=== PATIENT | female | born 1965 | race Caucasian/White ===

== ENCOUNTER → 2021-05-01 08:28 | Outpatient (BNVA) | payer MEDICARE, SELFPAY | PROVIDERS: Family Provider Family Medicine; PCP Family Medicine; Referring Provider Family Medicine; Visit Provider Specialist | DX: M25.561 Pain in right knee (principal) | CPT/HCPCS: 73560; 73565 ==

== ENCOUNTER 2021-05-06 06:00 | Outpatient (RCR) | payer MEDICARE, MEDICAID, SELFPAY | END 2021-05-14 23:59 | disposition home or self-care (01) | LOC: TPT 06:00 | PROVIDERS: PCP Family Medicine; Referring Provider Specialist; Visit Provider Specialist | DX: S80.01XA Contusion of right knee, initial encounter (principal); X58.XXXA Exposure to other specified factors, initial encounter | CPT/HCPCS: 97110; 97161 ==

== ENCOUNTER 2021-05-13 14:48 | Outpatient (CLI) | payer MEDICARE, MEDICAID, SELFPAY ==
--- NOTE | 2021-05-13 15:02 | MR_ITS ---
WS: [id number] MRI RIGHT KNEE NONCONTRAST TECHNIQUE: Axial PD, coronal PD fat sat, coronal PD, sagittal PD, and sagittal PD fat-sat images obta ined. Cardiac coil used due to body habitus. CLINICAL INFORMATION: S82.009A - Unspecified fracture of unspecified patella, i... COMPARISON: None. FINDINGS: Distal quadriceps and patella tendons are intact. Hypertrophic patella. T1 hypointense and T2 hyperin tense lesion involving the distal femur consistent with incidental enchondroma measuring 1.5 cm. Smal l amount of subchondral edema with advanced chondromalacia involving the medial patella facet. No vis ualized acute fractures. Full-thickness cartilage defects involving the medial patella facet with sub chondral edema. Normal anterior and posterior cruciate ligaments. Small suprapatellar effusion. Small amount of prepa tellar and infrapatellar soft tissue edema. Normal medial and lateral patellar retinaculum. Moderate degenerative narrowing involving the medial and lateral joint compartments. Normal medial and lateral collateral ligaments. Chronic thinning of the medial and lateral meniscus. No acute appearing menisc al tears. Small amount of chronic intrasubstance signal abnormality involving the meniscus. MR/MR knee RT wo con* [id number] IMPRESSION: 1. Normal anterior and posterior cruciate ligaments. 2. Hypertrophic patella. No visualized patellar fractures. 3. 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 4. Distal quadriceps and patella tendons are intact. Small amount of prepatell ar and infrapatellar soft tissue edema. 5. Incidental enchondroma distal femur. 6. No acute appearing meniscal tears. Outbridge grading: grade IV: full-thickness cartilage loss with underlying bone reactive changes
== END 2021-05-13 14:49 | disposition home or self-care (01) ==
LOC: RADSHAW 14:59
PROVIDERS: PCP Family Medicine; Visit Provider Family Medicine
DX: S82.001A Unspecified fracture of right patella, initial encounter for closed fracture (principal); W19.XXXA Unspecified fall, initial encounter; D16.21 Benign neoplasm of long bones of right lower limb; R60.0 Localized edema; M22.41 Chondromalacia patellae, right knee
CPT/HCPCS: 73721

== ENCOUNTER 2021-05-15 06:00 | Outpatient (RCR) | payer MEDICARE, MEDICAID, SELFPAY | END 2021-06-14 23:59 | disposition home or self-care (01) | LOC: TPT 06:00 | PROVIDERS: PCP Family Medicine; Referring Provider Specialist; Visit Provider Specialist | DX: S80.01XD Contusion of right knee, subsequent encounter (principal); X58.XXXD Exposure to other specified factors, subsequent encounter | CPT/HCPCS: 97110 ==

== ENCOUNTER 2021-06-15 06:00 | Outpatient (RCR) | payer MEDICARE, MEDICAID, SELFPAY | END 2021-07-15 23:59 | disposition home or self-care (01) | LOC: TPT 06:00 | PROVIDERS: PCP Family Medicine; Referring Provider Specialist; Visit Provider Specialist | DX: S80.01XD Contusion of right knee, subsequent encounter (principal); X58.XXXD Exposure to other specified factors, subsequent encounter | CPT/HCPCS: 97110; 97164 ==

== ENCOUNTER 2022-08-13 06:00 | Outpatient (RCR) | payer MEDICARE, SELFPAY | END 2022-08-14 23:59 | disposition home or self-care (01) | LOC: TPT 06:00 | PROVIDERS: PCP Family Medicine; Visit Provider Orthopaedic Surgery | DX: Z96.651 Presence of right artificial knee joint (principal) | CPT/HCPCS: 97163 ==

== ENCOUNTER 2022-08-15 06:00 | Outpatient (RCR) | payer MEDICARE, SELFPAY | END 2022-09-14 23:59 | disposition home or self-care (01) | LOC: TPT 06:00 | PROVIDERS: PCP Family Medicine; Visit Provider Orthopaedic Surgery | DX: M17.11 Unilateral primary osteoarthritis, right knee (principal) | CPT/HCPCS: 97110 ==

== ENCOUNTER 2022-09-15 06:00 | Outpatient (RCR) | payer MEDICARE, SELFPAY | END 2022-10-14 23:59 | disposition home or self-care (01) | LOC: TPT 06:00 | PROVIDERS: PCP Family Medicine; Visit Provider Orthopaedic Surgery | DX: M17.11 Unilateral primary osteoarthritis, right knee (principal) | CPT/HCPCS: 97110 ==

== ENCOUNTER 2022-10-15 06:00 | Outpatient (RCR) | payer MEDICARE, SELFPAY | END 2022-11-14 23:59 | disposition home or self-care (01) | LOC: TPT 06:00 | PROVIDERS: PCP Family Medicine; Visit Provider Orthopaedic Surgery | DX: Z96.651 Presence of right artificial knee joint (principal) | CPT/HCPCS: 97110; 97140 ==

== ENCOUNTER 2022-11-15 06:00 | Outpatient (RCR) | payer MEDICARE, SELFPAY | END 2022-12-08 23:59 | disposition home or self-care (01) | LOC: TPT 06:00 | PROVIDERS: PCP Family Medicine; Visit Provider Orthopaedic Surgery | DX: Z96.651 Presence of right artificial knee joint (principal) | CPT/HCPCS: 97110; 97140 ==

== ENCOUNTER → 2023-12-09 12:08 | Outpatient (BNVA) | payer MEDICARE, SELFPAY | PROVIDERS: PCP Family Medicine; Visit Provider Nurse Practitioner Family | DX: I10 Essential (primary) hypertension (principal); F32.A Depression, unspecified; Z86.718 Personal history of other venous thrombosis and embolism; Z68.43 Body mass index [BMI] 50.0-59.9, adult; M17.11 Unilateral primary osteoarthritis, right knee; G43.909 Migraine, unspecified, not intractable, without status migrainosus; G25.81 Restless legs syndrome; G47.00 Insomnia, unspecified; G43.901 Migraine, unspecified, not intractable, with status migrainosus; F51.01 Primary insomnia | CPT/HCPCS: 80053; 80061; 84443 ==

== ENCOUNTER → 2024-01-19 09:14 | Outpatient (BNVA) | payer MEDICARE, SELFPAY | PROVIDERS: PCP Family Medicine; Visit Provider Nurse Practitioner Family | DX: J40 Bronchitis, not specified as acute or chronic (principal); R93.89 Abnormal findings on diagnostic imaging of other specified body structures; R05.9 Cough, unspecified; J06.9 Acute upper respiratory infection, unspecified; I10 Essential (primary) hypertension; R06.02 Shortness of breath | CPT/HCPCS: 71046; 80053; 83880; 85025 ==

== ENCOUNTER → 2024-05-12 10:10 | Outpatient (BNVA) | payer MEDICARE, SELFPAY | PROVIDERS: PCP Family Medicine; Visit Provider Nurse Practitioner Family | DX: I10 Essential (primary) hypertension (principal); E66.01 Morbid (severe) obesity due to excess calories; K52.9 Noninfective gastroenteritis and colitis, unspecified; Z68.43 Body mass index [BMI] 50.0-59.9, adult | CPT/HCPCS: 80053; 85025 ==

== ENCOUNTER → 2025-10-01 12:42 | Outpatient (BNVA) | payer MEDICARE, SELFPAY | PROVIDERS: PCP Family Medicine; Visit Provider Nurse Practitioner Family | DX: L30.4 Erythema intertrigo (principal); D22.0 Melanocytic nevi of lip; L81.4 Other melanin hyperpigmentation; L57.8 Other skin changes due to chronic exposure to nonionizing radiation; L91.8 Other hypertrophic disorders of the skin; R20.8 Other disturbances of skin sensation; L82.0 Inflamed seborrheic keratosis; B07.8 Other viral warts | CPT/HCPCS: 17110; 99204 ==